=== PATIENT | male | born 1975 | race Caucasian/White ===

== ENCOUNTER 2016-10-13 16:12 | Emergency (ER) | payer MEDICARE, OTHER ==
--- NOTE | ~2016-10-13 | CR141 ---
[facility] A Service [facility] RADIOLOGY TEXT RESULTS PATIENT: DIANE ACEVES LOCATION: SED : 75 UNIT #: [id number] AGE: [address]: BARTOLO OLVERA SEX: M ORDER DR: [id number] [place] [id number] MR#: [id number] Acc #: [id number] NAME: DIANE ACEVES. : 1975 SEX: M STUDY DATE/TIME: 10/13/2016 16:14 UNIT: SED ROOM: STUDY DESCRIPTION: CR Hand Min 3 Views Lt Attending Physician: Bartolo Olvera Aprn Ordering Physician: Bartolo Olvera Aprn Primary Care Physician: Primary Care Physician No MEDICAL IMAGING REPORT This report is preliminary unless electronic signature is present. EXAM Left hand series INDICATION Left hand pain, redness and swelling after an injury 2 days ago. PROCEDURE 3 views of the left hand. COMPARISON None. FINDINGS There is a metallic BB along the dorsal aspect of the hand between the second and third metacarpal bones. No soft tissue gas. No visible bone injury. IMPRESSION 1. Metallic BB between the first and second metacarpal bones along the dorsal aspect of the hand. 2. No visible bone injury. Dictated by... Contrreas Lambert M.D. THIS IS AN ELECTRONICALLY VERIFIED REPORT Contreras Lambert M.D. at 10/14/2016 7:40 AM EEAlfreda/porsche TD: 10/14/2016 06:29 JOB #: [id number] [facility] A Service [facility] RADIOLOGY TEXT RESULTS PATIENT: DIANE ACEVES LOCATION: SED : 75 UNIT #: [id number] AGE: [address]: BARTOLO OLVERA SEX: M ORDER DR: MEDICAL IMAGING REPORT Page 1 of 1
[~2016-10-13 16:12] MED LIST: AMOXICILLIN500 M1 PO; NEOMYCIN-POLYMY10 ML AS; NO MEDICATIONS
== END 2016-10-13 18:06 | disposition home or self-care (01) ==
LOC: SED 16:12
DX: S61.422A Laceration with foreign body of left hand, initial encounter (principal); J45.909 Unspecified asthma, uncomplicated; F17.210 Nicotine dependence, cigarettes, uncomplicated; Z88.2 Allergy status to sulfonamides; Z23 Encounter for immunization; Z88.1 Allergy status to other antibiotic agents; W34.010A Accidental discharge of airgun, initial encounter
CPT/HCPCS: 73130; 90471; 90715; 99283

== ENCOUNTER 2016-12-05 07:27 | Emergency (ER) | payer MEDICARE, OTHER ==
--- NOTE | ~2016-12-05 | CR281 ---
[facility] A Service of [facility] RADIOLOGY TEXT RESULTS PATIENT: DIANE ACEVES LOCATION: SED : 75 UNIT #: [id number] AGE: [address]: Fam Willard MD SEX: M ORDER DR: [id number] [place] [id number] E MR#: [id number] Acc #: [id number] NAME: DIANE ACEVES : 1975 SEX: M STUDY DATE/TIME: 12/05/2016 8:04 UNIT: SED ROOM: STUDY DESCRIPTION: CR Wrist Min 3 View Lt Attending Physician: Fam Willard M.D. Ordering Physician: Fam Willard M.D. Primary Care Physician: No Primary Care Physician MEDICAL IMAGING REPORT This report is preliminary unless electronic signature is present. EXAM Left wrist. HISTORY Patient fell on outstretched hand last night on the left side. Pain since. TECHNIQUE Three views of the left wrist were obtained. FINDINGS There is an old fracture of the ulnar styloid that is nonunited. No acute carpal fracture is noted. There is no evidence of dislocation or subluxation. No radiodense foreign bodies are seen. IMPRESSION No acute fracture seen. Dictated by... Robin Abdi M.D. THIS IS AN ELECTRONICALLY VERIFIED REPORT Robin Abdi M.D. at 12/05/2016 3:44 PM RLF/clyde TD: 12/05/2016 10:05 JOB #: [id number] MEDICAL IMAGING REPORT Page 1 of 1
== END 2016-12-05 08:35 | disposition home or self-care (01) ==
LOC: SED 07:27
DX: S63.512A Sprain of carpal joint of left wrist, initial encounter (principal); S60.212A Contusion of left wrist, initial encounter; F17.210 Nicotine dependence, cigarettes, uncomplicated; Z88.2 Allergy status to sulfonamides; Z88.8 Allergy status to other drugs, medicaments and biological substances; W18.30XA Fall on same level, unspecified, initial encounter; Y92.009 Unspecified place in unspecified non-institutional (private) residence as the place of occurrence of the external cause
CPT/HCPCS: 29125; 73110; 99283